=== PATIENT | male | born 1935 | race Caucasian/White ===

== ENCOUNTER 2016-04-02 05:22 | Day surgery (SDC) | payer MEDICARE ==
[2016-03-31 14:16] LABS: ALBUMIN 3.5 g/dL (3.4-5.0); ANION GAP 10.5 mmol/L (8-16); BILIRUBIN - TOTAL 0.7 mg/dL (0.2-1.3); CALCIUM 8.9 mg/dL (8.5-10.1); CARBON DIOXIDE 32.2 mmol/L (21.0-32.0); CREATININE - SERUM 1.1 mg/dL (0.6-1.3); POTASSIUM - SERUM 3.7 mmol/L (3.5-5.1); PROTEIN - SERUM 6.4 g/dL (6.4-8.2)
[~2016-04-02] VITALS: Ht 177.8 cm; Wt 70.8 kg
[~2016-04-02 05:22] MED LIST: ALIGN4 MG PO; MIRALAX17 GM PO; MULTIPLE VITAMI1 TA1 PO; NASONEX NASAL S17 GM NS
[2016-04-02] MEDS ORDERED: EYE DROPS (08:09)
[2016-04-02 08:11] VITALS: BP 134/76; Ht 177.8 cm; Wt 70.8 kg
--- NOTE | 2016-05-14 10:17 | OP ---
PATIENT NAME: JOSE CHIN LUCINDA MEDICAL RECORD: [id number] :35 LOCATION:D.OPS ADMISSION DATE: SURGEON: LOUIS SPARKS MD DATE OF OPERATION: 04/02/2016 PREOPERATIVE DIAGNOSES: 1. History of arteriovenous malformation of the cecum, which had been treated in the past with the argon plasma motor equipment sergeant. 2. History of a complex polyp at 20 cm, which was tattooed. This had an area of high-grade dysplasia within it. POSTOPERATIVE DIAGNOSIS: 1. History of arteriovenous malformation of the cecum, which had been treated in the past with the argon plasma motor equipment sergeant. 2. History of a complex polyp at 20 cm, which was tattooed. This had an area of high-grade dysplasia within it. 3. No evidence of regrowth of the arteriovenous malformations of the cecum. 4. No evidence of regrowth of the polypoid area. I biopsied the scar and then I retreated the area with the argon plasma motor equipment sergeant. 5. Moderate left-sided diverticulosis. PROCEDURES: 1. Total colonoscopy to cecum. 2. Biopsies of these tattooed area, which contained a scar and then retreated with argon plasma motor equipment sergeant utilizing the right colon setting in the forced mode. SURGEON: Louis Sparks MD BRANCH ASSISTANT: None. BLOOD LOSS: Minimal. ANESTHESIA: General. COMPLICATIONS: None. The risks, possible complications and alternatives to procedure were explained to the patient. He elects to proceed. OPERATIVE COURSE: The patient was conveyed to the operating room electively on 04/02/2016. General anesthesia was induced by the anesthesia staff. The patient was placed in the Godfrey position. A digital rectal examination was performed. The prostate was diffusely enlarged and without nodules. A colonoscope was inserted through the anus. It was easily advanced to the cecum. Upon withdrawal, I irrigated and aspirated extensively. I dragged the folds. The pullback was greater than a 14-minute pullback. I identified the tattooed area. A combination of direct imaging as well as narrow band imaging were utilized. I re-biopsied the scar. I noted no evidence of regrowth of the polyp. I then retreated the area with the argon plasma motor equipment sergeant. I withdrew into the rectum. A retroflexed to view was obtained in the rectum, which revealed enlarged internal hemorrhoids. I then unretroflexed the scope and removed it under direct vision. I will see the patient in my office in 2-3 weeks. If there has been no OPERATIVE REPORT [id number] JOSE CHIN pathologic evidence of regrowth of the polyps, I will return the patient's surveillance endoscopies back over to Dr. Peters in the future. TRANSINT:[id number] Voice Confirmation ID: [id number] DOCUMENT ID: [id number] LOUIS SPARKS MD at 1017 CC: ANTWON PETERS MD and MANOHAR VICK MD [id number] DICTATION DATE: 04/02/16 1217 ELECTRONIC MUSICAL INSTRUMENT REPAIRER: 04/02/16 1238 [facility] 04/02/16 [id number] [place] [address]
--- NOTE | 2016-05-14 10:17 | HP ---
PATIENT: JOSE CHIN WRENSHALL MEDICAL RECORD: [id number] ACCOUNT: [id number] LOCATION:[facility] : 35 ADMISSION DATE: 04/02/16 HISTORY AND PHYSICAL EXAMINATION CHIEF COMPLAINT: History of colon polyps. HISTORY OF PRESENT ILLNESS: The patient has a history of complex colon polyp at 20 cm, which has been tattooed. At one time, he had had an area of high-grade dysplasia. Also, the patient has cecal AVMs, which I have treated in the past with the argon plasma blood bank assistant. The patient is to undergo colonoscopy and then polypectomy and retreatment of the polyp with the argon plasma blood bank assistant. The risks, possible complications and alternatives to procedure were explained to the patient. He elects to proceed. ALLERGIES: TO AMOXICILLIN AND NOVOCAIN. HOME MEDICINES: Include multivitamin. PAST MEDICAL HISTORY AND PAST SURGICAL HISTORY: Colon polyps. REVIEW OF SYSTEMS: Negative for CVA or seizures. Negative for diabetes or thyroid problems. PHYSICAL EXAMINATION: GENERAL: The patient does not appear acutely ill. He does not appear chronically ill. VITAL SIGNS: Reviewed. HEAD: External ears appear normal. EYES: Extraocular movements are intact. NECK: Trachea is midline. CHEST: No intercostal retractions. PULMONARY: Nonlabored, no stridor. ABDOMEN: Nontender. EXTREMITIES: No peripheral cyanosis. IMPRESSION: History of complex colon polyp with an area of high-grade dysplasia at 20 cm. PLAN: As described above. TRANSINT:[id number] Voice Confirmation ID: [id number] DOCUMENT ID: [id number] LOUIS SPARKS MD at 1017 CC: ANTWON SIERRA MD and MANOHAR VICK MD [id number] DICTATION DATE: 04/02/16 1221 RESIDENT CARE SPEC: 04/02/16 1230 [facility] 04/02/16 [facility] [address] [id number]
== END 2016-04-02 13:55 | disposition home or self-care (01) ==
LOC: D.OPS 05:22
PROVIDERS: Anesthesiology
DX: K57.30 Diverticulosis of large intestine without perforation or abscess without bleeding (principal); K64.8 Other hemorrhoids; Z86.010 Personal history of colon polyps; Z88.4 Allergy status to anesthetic agent; Z88.0 Allergy status to penicillin